=== PATIENT | female | born 1975 | race African-American/Black ===

== ENCOUNTER 2024-07-31 08:08 | Day surgery (SDC) | payer OTHER, SELFPAY ==
--- OUTSIDE RECORDS SUMMARY | 2024-07-02 15:22 | XMS_ITS | Clinical Summary ---
Author Organization [facility] Address [address] [facility] [address] [place] [address] Phone Care Team Providers Care Civil Engineering Teacher Name Role Phone Mandy Sanchez MD Primary Care Provider Allergies No known active allergies Medications fluticasone (FLONASE) 50 MCG/ACT nasal spray Administer 2 sprays into each nostril 1 (one) time each day 6 Active Etonogestrel (Nexplanon) 68 MG implant Inject under the skin Active amLODIPine (NORVASC) 5 MG tablet Take 5 mg by mouth 1 (one) time each day 2 Active Cholecalciferol (Vitamin D3) 50 MCG (1999 UT) tablet TAKE 1 TABLET (2,000 UNITS TOTAL) BY MOUTH ONCE DAILY 90 tablet 3 5 Active busPIRone (BUSPAR) 10 MG tablet Take 10 mg by mouth in the morning and 10 mg in the evening. 5 Active naproxen (EC NAPROSYN) 500 MG EC tablet Take 500 mg by mouth in the morning and 500 mg in the evening. Take with meals. Do not crush, chew, or split.. Active rosuvastatin (CRESTOR) 10 MG tablet Take 10 mg by mouth 1 (one) time each day 4 Active Active Problems Problem Noted Date Diagnosed Date Dyslipidemia 10/19/2021 Hypertension 10/06/2020 Stage 3a chronic kidney disease 08/05/2020 Tobacco dependence syndrome 08/05/2020 Vitamin D deficiency 08/05/2020 Impaired fasting glucose 08/05/2020 Resolved Problems Problem Noted Date Diagnosed Date Resolved Date Acute nontraumatic kidney injury 08/05/2020 10/06/2020 Mixed hyperlipidemia 08/05/2020 022 Encounters Date Type Department Care Team Description 04/17/2024 10:20 AM EST Office Visit [facility] [address] [facility] [address] [place] [phone] Yousuf Diaz MD Stage 3a chronic kidney disease (HCC) (Primary Dx); Hypertension; Tobacco dependence syndrome; Vitamin D deficiency, not otherwise specified 04/17/2024 Orders Only [facility] [address] [place] [phone] Yousuf Diaz MD Stage 3a chronic kidney disease (HCC); Hypertension; Dyslipidemia; Tobacco dependence syndrome; Vitamin D deficiency, not otherwise specified; Impaired fasting glucose 04/12/2024 Refill [facility] [address] [place] [phone] Yousuf Diaz MD from Last 3 Months Family History Medical History Relation Comments Hypertension Mother same Kidney disease Mother mom's sister on dialysis Relation Status Comments Mother Social History Tobacco Use Types Packs/Day Years Used Date Smoking Tobacco: Former Smokeless Tobacco: Never Alcohol Use Standard Drinks/Week Comments No 0 (1 standard drink = 0.6 oz pur e alcohol) Comments Unknown Sex and Gender Information Value Date Recorded Sex Assigned at Not on file Legal Sex Female 5:03 PM EST Gender Identity Not on file Sexual Orientation Not on file Last Filed Vital Signs Vital Sign Reading Time Taken Comments Blood Pressure 132/84 04/17/2024 10:20 AM EST Pulse 80 04/17/2024 10:20 AM EST Temperature - - Respiratory Rate - - Oxygen Saturation 99% 04/17/2024 10: 20 AM EST Inhaled Oxygen Concentration - - Weight 93.8 kg (206 lb 12.8 oz) 025 10:20 AM EST Height 165.1 cm (5' 5 ) 04/17/2024 10:2 0 AM EST Body Mass Index 34.41 04/17/2024 10:20 AM EST Plan of Treatment Upcoming Encounters Date Type Department Care Team (Late st Contact Info) Description 04/17/2025 10:20 AM EST Office Visit [facility] [address] [phone] Yousuf Diaz MD [address] [phone] Health Maintenance Due Date Last Done Comments Breast Cancer Screening 1975 Hepatitis B Vaccine (1 of 3 - 19+ 3-dose series) 01/31 Pneumococcal Vaccine: 50+ Years (1 of 2 - PCV) 992 Colorectal Cancer Screening: Annual FOBT 2022 Colorectal Cancer Screening: Colonoscopy 2022 Colorectal Cancer Screening: Sigmoidoscopy 2022 Influenza Vaccine (Season Ended) 2024 Procedures Procedure Name Priority Date/Time Associated Diagnosis Comments URINALYSIS RFX MICROSCOPIC Routine 04/10/2024 12:27 PM EST PROTEIN / CREATININE RATIO, URINE Routine 04/10/2024 12:27 PM EST Stage 3a chronic kidney disease (HCC) Hypertension Dyslipidemia Tobacco dependence syndrome Vitamin D deficiency, not otherwise specified Impaired fasting glucose CBC WITH AUTO DIFFERENTIAL Routine 04/10/2024 10:18 AM EST VITAMIN D 25 HYDROXY Routine 04/10/2024 10:18 AM EST Stage 3a chronic kidney disease (HCC) Hypertension Dyslipidemia Tobacco dependence syndrome Vitamin D deficiency, not otherwise specified Impaired fasting glucose PTH, INTACT Routine 04/10/2024 10:18 AM EST Stage 3a chronic kidney disease (HCC) Hypertension Dyslipidemia Tobacco dependence syndrome Vitamin D deficiency, not otherwise specified Impaired fasting glucose PHOSPHATE ( PHOSPHORUS) Routine 04/10/2024 10:18 AM EST Stage 3a chronic kidney disease (HCC) Hypertension Dyslipidemia Tobacco dependence syndrome Vitamin D deficiency, not otherwise specified Impaired fasting glucose MAGNESIUM Routine 04/10/2024 10:18 AM EST Stage 3a chronic kidney disease (HCC) Hypertension Dyslipidemia Tobacco dependence syndrome Vitamin D deficiency, not otherwise specified Impaired fasting glucose URIC ACID Routine 04/10/2024 10:18 AM EST Stage 3a chronic kidney disease (HCC) Hypertension Dyslipidemia Tobacco dependence syndrome Vitamin D deficiency, not otherwise specified Impaired fasting glucose COMPREHENSIVE METABOLIC PANEL Routine 04/10/2024 10:18 AM EST Stage 3a chronic kidney disease (HCC) Hypertension Dyslipidemia Tobacco dependence syndrome Vitamin D deficiency, not otherwise specified Impaired fasting glucose from Last 3 Months Results * Protein, Total, Random Urine w/Creatinine (Protein/Creat Ratio) (04/10/2024 12:27 PM EST) Pathologist [facility] Protein, Ur 30 mg/dL [facility] Urine Protein/Creati nine Ratio 0.18 <=0.20 mg/mg creat [facility] Creatinine, Urine 166.0 mg/dL [facility] Urine specimen (specimen) Urine specimen obtained by clean catch procedure / Unknown 04/10/2024 12:27 PM EST 04/10/2024 12:35 PM EST us Yousuf Diaz MD LAB URINE ORDERABLES Final Re sult [facility] [address] [place] [address] * (ABNORMAL) Urinalysis Reflex Microscopic (04/10/2024 12:27 PM EST) Pathologist [facility] Specific [place] 1.022 1.003 - 1.030 [facility] pH Urine 6.5 5.0 - 8.0 pH [facility] LEUKOCYTES, URINE Negative Negative [facility] Nitrite, Urine Negative Negative [facility] Protein, Urine Trace <=Trace mg/dL [facility] Glucose Urine Negative Negative mg/dL [facility] Ketones, Urine Negative Negative mg/dL [facility] Urobilinogen Urine 1.0 0.2 - 1.0 mg/dL [facility] Bilirubin Urine Negative Negative [facility] Blood Urine Small(A) Negative [facility] RBC, Urine 10(H) 0 - 4 /HPF [facility] WBC, Urine 2.1 0 - 4 /HPF [facility] Squamous Epithelial, Urine >100(H) 0 - 60 /LPF [facility] Bacteria, Urine Few(A) Negative /HPF [facility] Hyaline Casts, UA 0.8 0 - 3 /LPF [facility] Yeast, UA Present(A) None /HPF [facility] 04/10/2024 12:2 7 PM EST 04/10/2024 12:35 PM EST us Yousuf Diaz MD LAB URINE ORDERABLES Final Re sult [facility] [address] [place] [address] * (ABNORMAL) CBC auto differential (04/10/2024 10:18 AM EST) WBC 6.7 4.8 - 10.8 K/[facility] RBC 4.40 3.80 - 4.80 M/[facility] Hgb 14.2 11.5 - 16.0 g/dL [facility] Hematocrit 45.1 35.0 - 47.0 % [facility] MCV 102.0(H) 79.0 - 98.0 FL [facility] MCH 32.1(H) 27.0 - 32.0 pcg [facility] MCHC 31.5(L) 32.0 - 37.0 g/dL [facility] RDW 12.3 11.0 - 15.0 % [facility] Platelets 331 130 - 400 K/[facility] MPV 10.0 7.0 - 11.0 FL [facility] nRBC Count 0.0 <1.0 % [facility] NRBC Absolute 0.00 <0.10 K/[facility] Bands Relative 46.2 % [facility] Lymphocyte Realative Percent 43.2 % [facility] Monocyte Relative Percent 7.7 % [facility] Eosinophil Relative Percent 2.5 % [facility] Basophils Relative Diff 0.3 % [facility] Immature Granulocytes 0.1 % [facility] Neutrophils Absolute 3.09 1.50 - 7.00 K/[facility] Lymphocytes Absolute 2.90 1.00 - 5.00 K/[facility] Monocytes Absolute 0.52 0.20 - 1.00 K/[facility] Eosinophil Absolute 0.17 0.00 - 0.50 [facility] Basophil ABS 0.02 0.00 - 0.20 [facility] Immature Grans (Absolute) 0.01 0.00 - 0.03 K/[facility] 04/10/2024 10:1 8 AM EST 04/10/2024 10:53 AM EST us Yousuf Diaz MD LAB BLOOD ORDERABLES Final Re sult [facility] [address] [place] [address] * Vitamin D 25 Hydroxy (04/10/2024 10:18 AM EST) Vitamin D, 25-OH, Total 46.9 30.0 - 80.0 ng/mL [facility] Blood specimen (specimen) Venous blood / Unknown 04/10/2024 10:18 AM EST 04/10/2024 10:54 AM EST us Yousuf Diaz MD LAB BLOOD ORDERABLES Final Re sult Performing Organization Address [facility] Co de Phone Number [facility] [address] [place] [phone] * (ABNORMAL) Uric Acid (04/10/2024 10:18 AM EST) Uric Acid 2.7(L) 3.1 - 7.8 mg/dL [facility] Blood specimen (specimen) Venous blood / Unknown 04/10/2024 10:18 AM EST 04/10/2024 10:54 AM EST us Yousuf Diaz MD LAB BLOOD ORDERABLES Final Re sult Performing Organization Address [facility] de Phone Number [facility] [address] [place] [phone] * Phosphorus (04/10/2024 10:18 AM EST) Phosphorus 3.4 2.5 - 4.5 mg/dL [facility] Blood specimen (specimen) Venous blood / Unknown 04/10/2024 10:18 AM EST 04/10/2024 10:54 AM EST us Yousuf Diaz MD LAB BLOOD ORDERABLES Final Re sult Performing Organization Address [facility] de Phone Number [facility] [address] [place] [address] * PTH, Intact (04/10/2024 10:18 AM EST) PTH 52.3 18.5 - 88.0 pcg/mL [facility] Blood specimen (specimen) Venous blood / Unknown 04/10/2024 10:18 AM EST 04/10/2024 10:54 AM EST us Yousuf Diaz MD LAB BLOOD ORDERABLES Final Re sult Performing Organization Address City/[facility]/ZIP Co de Phone Number [facility] [address] [place] [address] * Magnesium (04/10/2024 10:18 AM EST) [facility] Magnesium 2.3 1.9 - 2.6 mg/dL [facility] Blood specimen (specimen) Venous blood / Unknown 04/10/2024 10:18 AM EST 04/10/2024 10:54 AM EST Yousuf Diaz MD LAB BLOOD ORDERABLES Final Re sult Performing Organization Address City/[facility]/ZIP Co de Phone Number [facility] [address] [place] [address] * (ABNORMAL) Comprehensive Metabolic Panel (04/10/2024 10:18 AM EST) [facility] Sodium 142 133 - 145 mmol/L [facility] Potassium 4.6 3.5 - 5.5 mmol/L [facility] Chloride 107 96 - 110 mmol/L [facility] Bicarbonate (CO2) 27 21 - 32 mmol/L [facility] Anion Gap 8 3 - 11 [facility] Glucose 101(H) 70 - 100 mg/dL [facility] BUN 22 5 - 25 mg/dL [facility] Creatinine Serum 1.16(H) 0.50 - 1.10 mg/dL [facility] eGFR 57(L) >=60 mL/min/1. 73m2 [facility] Comment:Calculation based on the?Chronic Kidney Disease Epidemiology Collaboration (CKD-EPI) equation refit?without adjustment for race. BUN/Creatinine Ratio 19.0 [facility] Calcium 9.3 8.5 - 10.5 mg/dL [facility] AST (SGOT) 20 10 - 42 unit/L [facility] ALT (SGPT) 22 10 - 60 unit/L [facility] Alkaline Phosphatase 90 42 - 121 unit/L [facility] Total Protein 7.5 6.0 - 8.0 g/dL [facility] Albumin 4.0 3.2 - 5.0 g/dL [facility] Total Bilirubin 0.5 0.0 - 1.4 mg/dL [facility] Blood specimen (specimen) Venous blood / Unknown 04/10/2024 10:18 AM EST 04/10/2024 10:54 AM EST us Yousuf Diaz MD LAB BLOOD ORDERABLES Final Re sult [facility] [address] [place] [address] from Last 3 Months Insurance [facility] Medicaid [facility] Medicaid Care Teams Civil Engineering Teacher Relationship Specialty Start Date End Date Mandy Sanchez MD [address] [place] [address] PCP - General Internal Medicine 06/01/20
--- OUTSIDE RECORDS SUMMARY | 2024-07-02 15:22 | XMS_ITS ---
Author Organization [facility] Address [address] [place] [phone] Care Team Providers Care Legal Contracts Specialist Name Role Phone Mandy Sanchez Primary Care Provider Unavailab Kadeem Hollis [phone] REASON FOR VISIT discuss colonoscopy Encounters Encounter Location Date Provider Diagnosis [facility] [address] [place] [phone] 04/10/2024 Kadeem Luis Plan Of Treatment Next Appt Details Provider Name:Kadeem Luis , 07/31/2024 09:30:00 AM, [address] [place] [address], [phone], Progress Notes * OFE HENDRICKSONDOB:1975 (49 yo F)Acc No.[id number]:04/10/2024 Progress Notes Patient:?OFE HENDRICKSON Provider:?Kadeem Luis MD :1975???Age:49 Y???Sex:Female D ate:04/10/2024 Address:[address] [place], [place] [phone] Pcp:Mandy Sanchez Subjective: * Chief Complaints: * ???1. Discuss colonoscopy. * Medical History:? Objective: * Vitals:? Assessment: Plan: * Treatment: * * The named appointment provid er may or may not be the originator of this progress note, and it is not deemed complete until electronically signed by the appointment provider. Sign off status: Pending * Provider:?Kadeem Luis MD Date:? 025 Generated for Kezia bowers/Isael/Faith on:?07/02/2024 03:22 PM EDT
--- OUTSIDE RECORDS SUMMARY | 2024-07-02 15:22 | XMS_ITS ---
Author Organization [facility] Address [address] [place] [phone] Care Team Providers Care Supervisor Ditching Name Role Phone Mandy Sanchez Primary Care Provider Unavailab Kadeem Hollis Unavailable [phone] REASON FOR VISIT bowel prep Medications Medication SIG (Take, Route, Frequency, Duration) Notes Start Date End Date Status MiraLax (colon prep) 17 GM/SCOOP 1 238 Gm bottle mixed with Gatorade or Crystal Light orally begin at 5:00 p.m. the day before the procedure for 1 days 06/09/2024 Active Dulcolax (colon prep) 5 MG take at 3:00 p.m and 7:00p.m. Orally two tablets twice a day for one day for 1 days 06/09/2024 Active Encounters Encounter Location Date Provider Diagnosis [facility] [address] [phone] 04/30/2024 Kadeem Luis Plan Of Treatment Medication Medication Name Sig Start Date Stop Date Notes MiraLax (colon prep) 17 GM/SCOOP 1 238 Gm bottle mixed with Gatorade or Crystal Light orally begin at 5:00 p.m. the day before the procedure for 1 days 06/09/2024 Dulcolax (colon prep) 5 MG take at 3:00 p.m and 7:00p.m. Orally two tablets twice a day for one day for 1 days 06/09/2024 Next Appt Details Provider Name:Kadeem Luis , 07/31/2024 09:30:00 AM, [address] [place] [address] , [place], [place], [phone], Progress Notes * OFE HENDRICKSONDOB:1975 (49 yo F)Acc No.[id number]:04/30/2024 Patient:?OFE HENDRICKSON :1975???Age:49 Y???Sex:Female Address:[address] [place] [address] * Refills? Start MiraLax (colon prep) Powder, 17 GM/SCOOP, orally, 1, 1 238 Gm bottle mixed with Gatorade or Crystal Light, begin at 5:00 p.m. the day before the procedure, 1 days, Refills=0 Start Dulcolax (colon prep) Tablet Delayed Release, 5 MG, Orally, 4, take at 3:00 p.m and 7:00p.m., two tablets twice a day for one day, 1 days, Refills=0 * true * Date:? Generated for Kezia bowers/Isael/Argentinaitting on:?07/02/2024 03:22 PM EDT
--- OUTSIDE RECORDS SUMMARY | 2024-07-02 15:22 | XMS_ITS ---
Author Organization [facility] Address [address] [place] [phone] Care Team Providers Care Textile Bag Sewer Name Role Phone Mandy Sanchez Primary Care Provider Unavailab Kadeem Hollis Unavailable [phone] Allergies No Known Allergies REASON FOR VISIT Patient presents today for a discuss colonoscopy Medications Medication SIG (Take, Route, Frequency, Duration) Notes Start Date End Date Status busPIRone HCl 10 MG 1 tablet Orally Twic e a day Active amLODIPine Besylate 5 MG 1 tablet Orally Once a day Active Rosuvastatin Calcium 10 MG 1 tablet Oral ly Once a day Active Sertraline HCl Activ e Naproxen Active Vitamin D3 Active Varenicline Tartrate Active Social History Tobacco Use: Social History Observation Description Date Details (start date - stop date) Former Smoker NA - NA Tobacco Control (Standard) Question Answer Notes Tobacco use: Former smoker AUDIT-C (Standard) Question Answer Notes Did you have a drink containing alcohol in the p ast year? No Points 0 Interpretation Negative Section Notes: Smoker--trying to quit as of the 04/2024 OV Occ. alcohol Vital Signs Blood pressure systolic 111 mm Hg 05/01/19 25 Blood pressure diastolic 11 mm Hg 025 Height 66 in 04/30/2024 Weight 208 lbs 04/30/2024 BMI 33.57 kg/m2 04/30/2024 Encounters Encounter Location Date Provider Diagnosis [facility] [address] [place] [phone] 04/30/2024 Kadeem Luis Colon cancer screeni ng Z12.11 and Preprocedural examination Z01.818 Assessments Encounter Date Diagnosis (ICD Code) Assessment Notes Treatment Notes Treatment Clinical Notes Section Notes 04/30/2024 Colon cancer screening (ICD-10 - Z12.11) Stop Naproxen for 1 week before the colonoscopy .Overall, Marah appears well. Given her age and good clinical appearance I did recommend a colonoscopy for screening purposes. We did review the rationale for this in regard to colon cancer prevention. Full consent has been obtained for this, including risks of bleeding and perforation. The procedure will be done with monitored anesthesia care. She was advised to stop naproxen for 1 week before the procedure. Marah was comfortable with this plan. Thank you again for allowing me to participate in Marah's care. I shall continue to keep you advised of her progress. 04/30/2024 Preprocedural examination (ICD-10 - Z01.818) .Overall, Marah appears well. Given her age and good clinical appearance I did recommend a colonoscopy for screening purposes. We did review the rationale for this in regard to colon cancer prevention. Full consent has been obtained for this, including risks of bleeding and perforation. The procedure will be done with monitored anesthesia care. She was advised to stop naproxen for 1 week before the procedure. Marah was comfortable with this plan. Thank you again for allowing me to participate in Marah's care. I shall continue to keep you advised of her progress. Plan Of Treatment Treatment Notes Assessment Notes Colon cancer screening Stop Naproxen for 1 week before the colonoscopy Pending Test Test Name Order Date Colonoscopy 04/30/2024 Next Appt Details Follow Up: prn, Reason: Provider Name:Kadeem Luis , 07/31/2024 09:30:00 AM, [address] [place] [address], [phone], Progress Notes * MARAH HENDRICKSONDOB:1975 (49 yo F)Acc No.[id number]:04/30/2024 Progress Notes Patient:?MARAH HENDRICKSON Provider:?Kadeem Luis MD :1975???Age:49 Y???Sex:Female D ate:04/30/2024 Address:[address] [place] [address] Pcp:Mandy Sanchez Subjective: * Chief Complaints: * ???Patient presents today fo r a discuss colonoscopy * HPI: ???incontinence:? I saw Marah in the office today for evaluation of colorectal cancer screening. As you know, Marah is a 49-year-old female who presently feels well. She enjoys a good appetite and denies any significant heartburn or dysphagia. Her bowel movements have been regular and without any signs of bleeding. She denies any abdominal pain, signs of jaundice, nor unintentional weight loss. She denies any known family history of colorectal cancer. She has never had a colonoscopy. * ROS:?General/Constitutional:?Change in appetite?denies.?Chills?denies.?Fatigue?denies.?Ophthalmologic:?Comments?all negative.?ENT:?Comments?all negative.?Respiratory:?hemoptysis?denies.?Cough?denies.?Cardiovascular:?Chest pain?denies.?Orthopnea?denies.?Gastrointestinal:?Comments?See HPI for details.?Genitourinary:?Hematuria?denies.?Dysuria?denies.?Musculoskeletal:?Painful joints?denies.?Weakness?denies.?Skin:?Itching?denies.?Rash?denies.?Neurologic:?Headache?denies.?Seizures?denies.?Psychiatric:?Comments?all negative.? * Medical History:? * Surgical History:?Cyst on fa 2023 * Hospitalization/Major Diagno stic Procedure:?No Hospitalization History. * Family History:?Father: dece ased.?Mother: alive, diagnosed with HTN (hypertension).? no known hx of colon ca. * Social History:?Tobacco Use:?Tobacco Control (Standard)?Tobacco use:?Former smoker.?Miscellaneous:?Marital status: single. Occupation: [employer] at [employer] in [place]. ???Drug/Alcohol:?AUDIT-C (Standard)?Did you have a drink containing alcohol in the past year??No,?Points?0,?Interpretation?Negative.?Smoker--trying to quit as of the 04/2024 OV Occ. alcohol. * Medications:?TakingVitamin D 3 Varenicline Tartrate Naproxen Sertraline HCl Rosuvastatin Calcium 10 MG Tablet 1 tablet Orally Once a day amLODIPine Besylate 5 MG Tablet 1 tablet Orally Once a day busPIRone HCl 10 MG Tablet 1 tablet Orally Twice a day Medication List reviewed and reconciled with the patientTaking Vitamin D3 Taking Varenicline Tartrate Taking Naproxen Taking Sertraline HCl Taking Rosuvastatin Calcium 10 MG Tablet 1 tablet Orally Once a day Taking amLODIPine Besylate 5 MG Tablet 1 tablet Orally Once a day Taking busPIRone HCl 10 MG Tablet 1 tablet Orally Twice a day Medication List reviewed and reconciled with the patient * Allergies:?N.K.D.A.yes[Aller gies Verified] Objective: * Vitals:?Wt: 208 lbs, Ht: 66 in, BMI:33.57Index, BP: 111/11 mm Hg, Ht-cm: 167.64, Wt-k.35. * Examination: ???General Examination: ?GENERAL APPEARANCE:?pleasant, well nourished, well developed, in no acute distress.?EYES:?sclera non-icteric.?ORAL CAVITY:?mucosa moist.?NECK/THYROID:?no cervical lymphadenopathy, neck supple.?SKIN:?nonjaundiced, no spider angiomata.?HEART:?S1, S2 normal.?LUNGS:?clear to auscultation bilaterally.?ABDOMEN:?normal bowel sounds, no guarding or rigidity, no guarding or rigidity, no masses palpable, soft, nontender, nondistended.?EXTREMITIES:?no edema.?NEUROLOGIC:?alert and oriented.? Assessment: * Assessment: 1.?Preprocedural examination - Z01.818 (Primary)???2.?Colon cancer screening - Z12.11??? .Overall, Marah appears we ll. Given her age and good clinical appearance I did recommend a colonoscopy for screening purposes. We did review the rationale for this in regard to colon cancer prevention. Full consent has been obtained for this, including risks of bleeding and perforation. The procedure will be done with monitored anesthesia care. She was advised to stop naproxen for 1 week before the procedure. Marah was comfortable with this plan. Thank you again for allowing me to participate in Marah's care. I shall continue to keep you advised of her progress. Plan: * Treatment: * Notes: Stop Naproxen for 1 week before the colonoscopy?? * Procedure Codes:?3017F COLOR ECTAL CA SCREEN DOC [id number] BP SCR NOT PRFRM REC REASON [id number] Pt scrn tbco and id as user * Preventive Medicine:? ??Counseling:?Care goal follow-up plan:?Above Normal BMI Follow-up?Giving encouragement to exercise,?BMI management provided?Yes.? * Follow Up:?prn * * Sign off status: Completed true * Provider:?Kadeem Luis MD Date:? 025 Generated for Kezia bowers/Isael/Faith on:?07/02/2024 03:22 PM EDT History and Physical Notes * Examination Category Sub-Category Detail Notes Category Not es General Examination GENERAL APPEARANCE: pleasant , well nourished, well developed, in no acute distress HEAD: EYES: sclera non-icteric EARS: NOSE: THROAT: NECK/THYROID: no cervical lymphade nopathy, neck supple HEART: S1, S2 normal CHEST: LUNGS: clear to auscultatio n bilaterally ABDOMEN: normal bowel sounds, no guarding or rigidity, no guarding or rigidity, no masses palpable, soft, nontender, nondistended NEUROLOGIC: alert and oriented SKIN: nonjaundiced, no spi panda angiomata EXTREMITIES: no edema PERIPHERAL PULSES: BACK: BREASTS: MUSCULOSKELETAL: MALE GENITOURINARY: LYMPH NODES: RECTAL EXAM: FEMALE GENITOURINARY: ORAL CAVITY: mucosa moist
--- OUTSIDE RECORDS SUMMARY | 2024-07-02 15:22 | XMS_ITS | Patient Health Record ---
Author Organization [facility] Address [address] [place] [address] Care Team Providers Care Manager Night Name Role Phone Mandy Sanchez Primary Care Provider UnavailKadeem Bolivar Unavailable [phone] Allergies No Known Allergies Reason For Referral No Information Medications Medication SIG (Take, Route, Frequency, Duration) Notes Start Date End Date Status Vitamin D3 Active MiraLax (colon prep) 17 GM/SCOOP 1 238 Gm bottle mixed with Gatorade or Crystal Light orally begin at 5:00 p.m. the day before the procedure for 1 days 06/09/2024 Active busPIRone HCl 10 MG 1 tablet Orally Twic e a day Active amLODIPine Besylate 5 MG 1 tablet Orally Once a day Active Dulcolax (colon prep) 5 MG take at 3:00 p.m and 7:00p.m. Orally two tablets twice a day for one day for 1 days 06/09/2024 Active Rosuvastatin Calcium 10 MG 1 tablet Oral ly Once a day Active Sertraline HCl Activ e Naproxen Active Varenicline Tartrate Active Social History Tobacco [...] OV Occ. alcohol Vital Signs Blood pressure diastolic 11 mm Hg 04/30/2024 Height 66 in 04/30/2024 Blood pressure systolic 111 mm Hg 04/30/2024 Weight 208 lbs 04/30/2024 BMI 33.57 kg/m2 04/30/2024 Encounters Encounter Location Date Provider Diagnosis [facility] [address] [place] [address] 04/30/2024 Kadeem Luis Colon cancer screeni ng Z12.11 and Preprocedural examination Z01.818 [facility] [address] [place] [address] 04/30/2024 Kadeem Luis Assessments Encounter Date Diagnosis (ICD Code) Assessment [...] advised of her progress. Plan Of Treatment Pending Test Test Name Order Date Colonoscopy 04/30/2024 Next Appt Details Provider Name:Kadeem Luis , 07/31/2024 09:30:00 AM, [address] [facility] , [place], [place], [phone], Insurance Providers Payer Name Payer Address Payer Phone Subscriber Number Group Number Insured Name Patient Relationship to Insured Coverage Start Date Coverage End Date [facility] [address] [address] [place], [place] [id number] Self - patient is the insured Medical (General) History Medical History History ICD Code Hypertension Denies [place],DM,CVA,Lung disease,renal dise ase Depression Anxiety Hyperlipidemia She reports that she sees a oil changer for previous kidney issues Surgical History Surgery Date(Month/Year) Cyst on face 2023
--- OUTSIDE RECORDS SUMMARY | 2024-07-02 15:23 | XMS_ITS | Encounter Summary ---
Author Organization [facility] Address [address] [facility] [address] [place] [address] Phone Care Team Providers Care Wholesale And Retail Merchant Name Role Phone Mandy Sanchez MD Primary Care Provider Encounter Details Date Type Department Care Team (Late Contact Info) Description 09/05/2020 Orders Only [facility] [address] [facility] [address] [place] [address] [place] [address] [place] [phone] Stage 3a chronic kidney disease (HCC); Tobacco dependence syndrome Social History Tobacco Use Types Packs/Day Years Used Date Smoking Tobacco: Former Smokeless Tobacco: Never Alcohol Use Standard Drinks/Week Comments No 0 (1 standard drink = 0.6 oz pur e alcohol) Comments Unknown Sex and Gender Information Value Date Recorded Sex Assigned at Not on file Legal Sex Female 5:03 PM EST Gender Identity Not on file Sexual Orientation Not on file documented as of this encounter Plan of Treatment Upcoming Encounters Date Type Department Care Team (Late st Contact Info) Description 04/17/2025 10:20 AM EST [facility] [address] [address] Yousuf Diaz MD [address] [phone] documented as of this encounter Visit Diagnoses Diagnosis Stage 3a chronic kidney disease (HCC) Tobacco dependence syndrome documented in this encounter Care Teams Wholesale And Retail Merchant Relationship Specialty Start Date End Date Mandy Sanchez MD [address] PCP - General Internal Medicine 06/01/20 documented as of this encounter
[2024-07-29 12:54] VITALS: BMI 33.6
--- NOTE | 2024-07-30 10:03 | HO.ANESPROP2 ---
Documented by User: Ashleigh Mistry NP 07/30/24 10:03 HPI - Anesthesia Eval Consult details Narrative: 49yo F for [facility] Past Medical History Medical History HLD (hyperlipidemia) Anxiety Depression HTN (hypertension) Surgical History Surgical History History of surgery (2023) Social History Social History Patient Tobacco Use Status: Never used Tobacco Meds Allergies Allergy/AdvReac Type Severity Reaction Status Date / Time No Known Allergies Allergy Verified 07/30/24 10:04 Home Medications ?Medication ?Instructions ?Recorded ?Confirmed ?Last Taken ?Type Vitamin D3 07/29/24 Unknown History amlodipine 5 mg tablet 5 mg PO DAILY 07/29/24 07/29/24 Unknown History buspirone 10 mg tablet 10 mg PO BID 07/29/24 07/29/24 Unknown History rosuvastatin 10 mg tablet 10 mg PO DAILY 07/29/24 07/29/24 Unknown History sertraline 100 mg tablet 100 mg PO BEDTIME 07/29/24 07/29/24 Unknown History varenicline tartrate 07/29/24 Unknown History Exam Height,Weight and Vital Signs: Height 5 ft 6 in Weight 94.347 kg Assessment and Plan Assessment Anesthesia Assessment: Chart Reviewed Documented by User: Edwin Ferrari MD 07/31/24 09:11 [facility] Past Medical History Medical History HLD (hyperlipidemia) Anxiety Depression HTN (hypertension) Functional capacity: independent ambulation Patient : No Family History Family history of problems with anesthesia: No Surgical History Surgical History History of surgery (2024) Social History Social History Patient Tobacco Use Status: Never used Tobacco Meds Allergies Allergy/AdvReac Type Severity Reaction Status Date / Time No Known Allergies Allergy Verified 07/30/24 10:04 Home Medications ?Medication ?Instructions ?Recorded ?Confirmed ?Last Taken ?Type Vitamin D3 07/29/24 Unknown History amlodipine 5 mg tablet 5 mg PO DAILY 07/29/24 07/29/24 Unknown History buspirone 10 mg tablet 10 mg PO BID 07/29/24 07/29/24 Unknown History rosuvastatin 10 mg tablet 10 mg PO DAILY 07/29/24 07/29/24 Unknown History sertraline 100 mg tablet 100 mg PO BEDTIME 07/29/24 07/29/24 Unknown History varenicline tartrate 07/29/24 Unknown History Exam Exam Date and Time: 07/31/2024 Airway TM Dist: >3cm Neck ROM: Full (no dentures) Loose/Missing/Broken Teeth: No Heart: rrr Lungs: cta Assessment and Plan Final Anesthetic Review Family History of Problems with Anesthesia: No ASA Class: II Final Preanesthetic Review: No Changes in Pt Med Stat, Meds/Allgs Chart Reviewed, Consent Obtained/Reviewed and Anes Risks/Benef Reviewed Patient Risk: Low Procedure Risk: Low Anesthetic Plan Anesthetic Plan: MAC: Disposition: Standard PACU
[2024-07-31 08:57] VITALS: BP 156/98; PULSE 80; RESP 18; TEMP 36.4; O2SAT 96
[2024-07-31 09:03] VITALS: BMI 33.6
[2024-07-31] MEDS: Lactated Ringers 1,000 ML 100 ML IVCONT (09:17)
[2024-07-31 10:28] VITALS: BP 91/59; PULSE 81; RESP 16; TEMP 36.3; O2SAT 99
--- NOTE | 2024-07-31 10:28 | P.BOP_ITS ---
Brief Operative Note Date of Service: 07/31/24 Pre-op diagnosis: Screening Post-op diagnosis: other (Diverticulosis) Procedure: Colonoscopy to the cecum Surgeon: Kadeem Luis MD Anesthesia: MAC Was an Speech Pathology Assistant used for this Procedure?: No Estimated blood loss (mL): 0 Pathology: none sent Condition: stable Disposition: PACU
[2024-07-31 10:43] VITALS: BP 161/89; PULSE 73; RESP 16; TEMP 36.1; O2SAT 99
--- NOTE | 2024-07-31 11:18 | OP_ITS ---
DATE OF SERVICE: 07/31/2024 SURGEON: Kadeem Luis MD INDICATIONS: The patient presents for evaluation of colorectal cancer screening. Full consent was obtained from her for this, including risks of bleeding and perforation. PREOPERATIVE DIAGNOSIS: Colorectal cancer screening. POSTOPERATIVE DIAGNOSIS: Colorectal cancer screening, diverticulosis, and internal hemorrhoids. PROCEDURE PERFORMED: Colonoscopy to the cecum. ESTIMATED BLOOD LOSS: COMPLICATIONS: ANESTHESIA: Medication used, monitored anesthesia care. ASSISTANTS: SPECIMENS: DESCRIPTION OF PROCEDURE: The patient was placed in the left lateral decubitus position. The digital rectal exam revealed no abnormalities. The Olympus video pediatric colonoscope was entered into the rectum and advanced easily to the cecum. Once in the cecum, I did identify normal-appearing cecal pouch with appendiceal orifice and a normal-appearing ileocecal valve. The entire cecum appeared normal. Scope was slowly withdrawn assessing all mucosal surfaces carefully. Preparation was excellent. I did not visualize any sign of polyps, colitis, nor angiodysplasia. There was a mild amount of sigmoid diverticulosis. In the rectum, scope was retroflexed visualizing internal hemorrhoids, but no other pathology. The rectal mucosa appeared normal. Scope was straightened and withdrawn from the patient. She tolerated the procedure well and was returned to the recovery area in stable condition. IMPRESSION: 1. Mild diverticulosis. 2. Internal hemorrhoids. PLAN: Given today's negative exam and negative family history, I would recommend a followup coloscopy in 10 years for further screening. She will otherwise see me on a p.r.n. basis. MD MAIRA Armas/BRITTL / [id number]
== END 2024-07-31 11:02 | disposition home or self-care (01) ==
PROVIDERS: PCP Internal Medicine; Visit Provider Internal Medicine
PROC: 0DJD8ZZ Inspection of Lower Intestinal Tract, Via Natural or Artificial Opening Endoscopic (ICD-10-PCS; CPT 45378; principal; 2024-07-31 09:30)
DX: Z12.11 Encounter for screening for malignant neoplasm of colon (principal); K57.30 Diverticulosis of large intestine without perforation or abscess without bleeding; K64.8 Other hemorrhoids; I10 Essential (primary) hypertension; E78.5 Hyperlipidemia, unspecified; Z87.891 Personal history of nicotine dependence; Z79.02 Long term (current) use of antithrombotics/antiplatelets; Z79.899 Other long term (current) drug therapy
CPT/HCPCS: 45378; J2704